=== PATIENT | female | born 1985 | race Two or more races ===

== ENCOUNTER 2021-05-21 23:56 | Emergency (ER) | payer MEDICAID, SELFPAY | END 2021-05-22 01:06 | disposition home or self-care (01) | LOC: CSHERS 23:56 | DX: J34.89 Other specified disorders of nose and nasal sinuses (principal); F17.210 Nicotine dependence, cigarettes, uncomplicated | CPT/HCPCS: 99284 ==

== ENCOUNTER 2025-03-04 13:55 | Emergency (ER) | payer OTHER, SELFPAY ==
[2025-03-04] MEDS ORDERED: Dexamethasone 10 MG/ML VIAL ONE (14:39)
[2025-03-04 15:15] LABS: Glucose, Urine (Dipstick) Negative (Negative); Leukocyte Negative (Negative); Protein, Urine (Dipstick) Negative (Neg-Trace); Specific Gravity, Urine 1.010 (1.005-1.030)
[2025-03-04 15:17] LABS: Pregnancy Test - Urine (BHCG) Negative (Negative); Pregu Control Background? CLEAR/WHITE (CLR/WHITE); Pregu Control Bar Appear? YES (CONTROL BAR)
[2025-03-04 15:44] LABS: Bacteria/HPF Rare-Few HPF (None Seen); CAUTI Indications for Culture Pelvic or flank pain; RBC/HPF 0-3 HPF (0-3); WBC/HPF 0-3 HPF (0-3)
[2025-03-04 15:45] LABS: Urine Culture Reflex No No
== END 2025-03-04 16:08 | disposition home or self-care (01) ==
LOC: CSHERS 13:55
DX: M54.42 Lumbago with sciatica, left side (principal); K59.00 Constipation, unspecified; F17.210 Nicotine dependence, cigarettes, uncomplicated
CPT/HCPCS: 72131; 74176; 81001; 81025; 96372; J1100